=== PATIENT | male | born 1955 | race Caucasian/White ===

== ENCOUNTER 2017-12-18 13:42 | Emergency (ER) | payer OTHER ==
[~2017-12-18] VITALS: Ht 180.3 cm; Wt 88.0 kg
[2017-12-18] MEDS ORDERED: NAMENDA10 MG PO (13:51)
[2017-12-18] MEDS ORDERED: LIPITOR40 MG PO (13:51)
== END 2017-12-18 23:19 | disposition home or self-care (01) ==
LOC: ER 13:42 → EDBD 14:11 → ER 14:11
DX: M54.5 Low back pain (principal); N28.1 Cyst of kidney, acquired

== ENCOUNTER 2018-02-23 11:04 | Outpatient (CLI) | payer OTHER ==
[~2018-02-23 11:04] MED LIST: LIPITOR40 MG PO; NAMENDA10 MG PO
== END 2018-02-23 11:20 | disposition home or self-care (01) ==
LOC: SONOGRAMA 11:04
DX: N40.1 Benign prostatic hyperplasia with lower urinary tract symptoms (principal)